=== PATIENT | female | born 1980 | race Hispanic/Latino ===

== ENCOUNTER 2018-05-20 07:02 | Day surgery (SDC) | payer BC ==
[2018-05-16 10:24] LABS: BASOPHILS % (AUTO) 0.8 % (0.0-5.0); EOSINOPHILS % (AUTO) 0.9 % (0.0-8.0); HEMATOCRIT 34.3 % (36-48); MEAN CORPUSCULAR HEMOGLOBIN 29.4 pg (27.0-33.0); MEAN CORPUSCULAR HGB CONC 33.1 g/dL (32.0-36.0); MEAN CORPUSCULAR VOLUME 88.8 fL (79-99); MONOCYTES % (AUTO) 6.8 % (3.0-13.0); NEUTROPHILS % (AUTO) 50.5 % (40.0-77.0); NUCLEATED RED BLOOD CELLS 0.1 % (0.0-0.19); PLATELET COUNT (AUTO) 172 K/uL (130-400); RED BLOOD CELL COUNT(AUTO) 3.87 MIL/uL (4.00-5.50); RED CELL DISTRIBUTION WIDTH 13.9 % (11.0-15.5); WHITE BLOOD COUNT (AUTO) 3.8 K/uL (4.8-10.8)
[2018-05-16 10:47] VITALS: BP 107/54
[2018-05-20] VITALS (16 sets, daily range): BP systolic 96–109; BP diastolic 53–69
[~2018-05-20] VITALS: Ht 160 cm; Wt 61.6 kg
[~2018-05-20 07:02] MED LIST: DOXY100C2 PO; LACTATED RINGERS 1000ML 1,000 ML IV SCH
[2018-05-20] MEDS ORDERED: LIDOCAINE PF 2% 5ML ABBOJECT ONE (07:45)
[2018-05-20] MEDS ORDERED: PROPOFOL 10 MG/ML 20ML VIAL IV ONE (07:46)
[2018-05-20] MEDS ORDERED: DURAMORPH PF1 MG/ML 10ML AMP IV ONE (07:48)
[2018-05-20] MEDS ORDERED: ONDANSETRON HCL 4 MG/2 ML VIAL ONE (07:51)
[2018-05-20] MEDS ORDERED: DEXAMETHASONE SOD PHOSPHATE 10MG/ML 1ML VIAL ONE (07:51)
[2018-05-20] MEDS ORDERED: MIDAZOLAM HCL 1 MG/ML 2ML VIAL ONE (07:57)
== END 2018-05-20 10:15 | disposition home or self-care (01) ==
LOC: DAH 07:02
PROVIDERS: ATTEND Specialist
DX: N92.3 Ovulation bleeding (principal); Z80.49 Family history of malignant neoplasm of other genital organs; Z88.0 Allergy status to penicillin; Z98.890 Other specified postprocedural states
CPT/HCPCS: 36415; 58120; 84702; 85025; 88305; A4351; J1100; J2001; J2250; J2274; J2405; J2704; J7120

== ENCOUNTER 2022-04-09 06:02 | Day surgery (SDC) | payer BC ==
[2022-04-06 14:39] LABS: BASOPHILS % (AUTO) 0.3 % (0.0-5.0); EOSINOPHILS % (AUTO) 1.2 % (0.0-8.0); HEMATOCRIT 37.1 % (36-48); LYMPHOCYTES % (AUTO) 22.4 % (21.0-51.0); MEAN CORPUSCULAR HEMOGLOBIN 28.5 pg (27.0-33.0); MEAN CORPUSCULAR HGB CONC 33.4 g/dL (32.0-36.0); MEAN CORPUSCULAR VOLUME 85.3 fL (79-99); NEUTROPHILS % (AUTO) 69.8 % (40.0-77.0); PLATELET COUNT (AUTO) 224 K/uL (130-400); RED BLOOD CELL COUNT(AUTO) 4.35 MIL/uL (4.00-5.50); RED CELL DISTRIBUTION WIDTH 13.6 % (11.0-15.5); WHITE BLOOD COUNT (AUTO) 7.3 K/uL (4.8-10.8)
[2022-04-09] VITALS (19 sets, daily range): BP systolic 80–123; BP diastolic 36–67
[~2022-04-09] VITALS: Ht 157.5 cm; Wt 68.8 kg
[2022-04-09] MEDS: CALDOLOR 800MG+NS 250ML 250 ML IV SCH ×2 (06:00→07:20)
[2022-04-09] MEDS: CLINDAMYCIN IVPB 600MG/50ML 50 ML IV SCH ×2 (06:00→07:03)
[~2022-04-09 06:02] MED LIST changes: +BUPIVACAINE/PF 0.25% 30ML VIAL IJ ONE; -DOXY100C2 PO; -LACTATED RINGERS 1000ML 1,000 ML IV SCH; +NITR100C PO
[2022-04-09] MEDS: LACTATED RINGERS 1000ML 1,000 ML IV SCH ×2 (06:29→08:35)
[2022-04-09] MEDS ORDERED: FENTANYL CITRATE PF 50 MCG/1 ML 2ML VIAL ONE ×4 (06:52→10:18)
[2022-04-09] MEDS ORDERED: ONDANSETRON 4MG INJ ONE (06:52)
[2022-04-09] MEDS ORDERED: MIDAZOLAM HCL 1 MG/ML 2ML VIAL ONE (06:53)
[2022-04-09] MEDS ORDERED: PROPOFOL 10 MG/ML 20ML VIAL IV ONE (06:53)
[2022-04-09] MEDS ORDERED: ROCURONIUM 10MG/1ML SYR 10 MG/ML ML ONE (06:53)
[2022-04-09] MEDS ORDERED: GLYCOPYRROLATE 1 MG/5 ML SYRINGE ONE (08:05)
[2022-04-09] MEDS ORDERED: NEOSTIGMINE 5MG/5ML SYR IV ONE (08:06)
[2022-04-09] MEDS ORDERED: EPHEDRINE SULFATE 50 MG/ML AMPULE ONE (08:47)
[2022-04-09] MEDS ORDERED: MEPERIDINE-PF 25 MG/ML SYG ONE (09:08)
[2022-04-09] MEDS ORDERED: PHENYLEPHRINE HCL 10 MG/ML 1ML VIAL IV ONE (09:46)
[2022-04-09] MEDS ORDERED: DELNIDO FORMULA 0 BAG IV ONE (12:37)
[2022-04-09 15:16] LABS: ABG BASE EXCESS 3.8 mmol/L (-2.0-3.0); ABG HCO3 28.2 mmol/L (21.0-28.0); ABG OXYGEN SATURATION 95.1 % (95.0-99.0); ABG PCO2 42 mmHg (32-45)
== END 2022-04-09 10:30 | disposition home or self-care (01) ==
LOC: DAH 06:02
PROVIDERS: ATTEND Obstetrics & Gynecology
DX: N92.1 Excessive and frequent menstruation with irregular cycle (principal); Z20.822 Contact with and (suspected) exposure to COVID-19; N83.291 Other ovarian cyst, right side; N83.292 Other ovarian cyst, left side; N83.8 Other noninflammatory disorders of ovary, fallopian tube and broad ligament; N84.0 Polyp of corpus uteri; G43.909 Migraine, unspecified, not intractable, without status migrainosus; Z79.899 Other long term (current) drug therapy; Z79.01 Long term (current) use of anticoagulants; Z98.891 History of uterine scar from previous surgery; Z98.890 Other specified postprocedural states; Z82.49 Family history of ischemic heart disease and other diseases of the circulatory system; Z83.3 Family history of diabetes mellitus; Z80.41 Family history of malignant neoplasm of ovary; Z84.1 Family history of disorders of kidney and ureter
CPT/HCPCS: 84703; 85025; 86850 ×2; 86900 ×2; 86901 ×2; 87426; 36415 ×2; 58661; 58563; 82435; 82947; 84132; 84295; 82803; 85018; 83605; A6260; A4663; J7030; J7120 ×2; A4344; J3010 ×3; J3490 ×4; J2710; J2250; J2704; J2405; J2175; J2370; J1741; C1769 ×3; G0168; A4649 ×2; A4215; A4223; A4222; A4221; A4335

== ENCOUNTER → 2022-05-28 | Outpatient (CLI) | payer BC ==
[~2022-05-28] MED LIST changes: -BUPIVACAINE/PF 0.25% 30ML VIAL IJ ONE
== END | disposition home or self-care (01) ==
LOC: RAH 08:54
PROVIDERS: ATTEND Obstetrics & Gynecology
DX: Z12.31 Encounter for screening mammogram for malignant neoplasm of breast (principal)
CPT/HCPCS: 77067

== ENCOUNTER → 2023-07-16 | Outpatient (CLI) | payer BC | END | disposition home or self-care (01) | LOC: RAH 08:44 | PROVIDERS: ATTEND Family Medicine | DX: N60.02 Solitary cyst of left breast (principal); N64.4 Mastodynia; R59.0 Localized enlarged lymph nodes; R92.333 Mammographic heterogeneous density, bilateral breasts | CPT/HCPCS: 77066 ==

== ENCOUNTER → 2023-10-11 | Outpatient (CLI) | payer BC ==
[~2023-10-11] MED LIST changes: +IOHEXOL 350 MG/ML 100ML INFUS..BTL IV ONE
== END | disposition home or self-care (01) ==
LOC: RAH 08:03
PROVIDERS: ATTEND Urology
DX: N28.1 Cyst of kidney, acquired (principal); N39.0 Urinary tract infection, site not specified
CPT/HCPCS: 74178; Q9967

== ENCOUNTER → 2024-11-12 | Outpatient (CLI) | payer BC ==
[~2024-11-12] MED LIST changes: -IOHEXOL 350 MG/ML 100ML INFUS..BTL IV ONE
[2024-11-12 10:18] LABS: INR 0.99 (0.85-1.15); PROTHROMBIN TIME 10.5 SEC (9.6-11.6)
[2024-11-12 10:19] LABS: PARTIAL THROMBOPLASTIN TIME 28.7 SEC (26.3-35.5)
--- NOTE | 2024-11-12 11:00 | NUR ---
U/S GUIDED RIGHT BREAST BX PROCEDURE PERFORMED BY DR. Robert ESCALERA. PUNCTURE SITE RIGHT INNER BREAST AT 3 O'CLOCK AND PATIENT TOLERATED PROCEDURE WELL. SPECIMEN X3 COLLECTED AND SENT TO LAB. END OF PROCEDURE AT 1050. BIOPSY NEEDLE REMOVED AND DRESSING APPLIED- NO BLEEDING NOTED. COLD PATCH APPLIED TO RIGHT BREAST PUNCTURE SITE. DISCHARGE INSTRUCTIONS GIVEN TO PATIENT AND VERBALIZED UNDERSTANDING. DISCHARGED VIA AMBULATORY- AAO X3 WITH NO C/O PAIN
--- NOTE | 2024-11-12 13:57 | HMCIMG ---
US BREAST BX 1ST LESION IR HISTORY: Right breast 3:00 position lesion Case done by Dr. Su TECHNIQUE: Informed consent was obtained after explaining the procedure and potential complications to the patient. Timeout performed. All elements of maximal sterile barrier technique, including hand hygiene and cutaneous antisepsis were used. The breast was prepped and draped in a sterile fashion. Local anesthesia was applied and under ultrasound guidance a needle introducer was advanced into the lesion of interest. Then, 3 passes were made with a Bard 14-gauge coring needle. This was followed by placement of a metallic marker (clip). Mammographic views were performed that confirm adequate placement of the biopsy site marking clip. Completion images showed no hemorrhage. Sterile dressing applied. Patient tolerated the procedure well and was discharged home in good condition. Complications: None Blood loss: < 5 mL. IMPRESSION: Successful breast lesion core biopsy and marker placement.
== END | disposition home or self-care (01) ==
LOC: RAH 09:26
PROVIDERS: ATTEND Internal Medicine
DX: R93.41 Abnormal radiologic findings on diagnostic imaging of renal pelvis, ureter, or bladder (principal); N64.4 Mastodynia; N64.89 Other specified disorders of breast; N28.89 Other specified disorders of kidney and ureter; E78.5 Hyperlipidemia, unspecified; G43.909 Migraine, unspecified, not intractable, without status migrainosus; Z88.0 Allergy status to penicillin; Z79.899 Other long term (current) drug therapy
CPT/HCPCS: 19083; 85610; 85730; 36415; 88305; 88342; 88341; A4215 ×2